=== PATIENT | female | born 1955 | race Caucasian/White ===

== ENCOUNTER 2019-03-21 19:56 | Emergency (ER) | payer MEDICARE ==
[~2019-03-21] VITALS: Ht 171.4 cm; Wt 100.0 kg
[~2019-03-21 19:56] MED LIST: ADDERALL 30 MG30 MG PO; ASPIRIN325 MG; ASPIRIN325 MG PO; CELEXA20 MG PO; CELEXA40 MG PO; DILAUDID8 MG PO; ELIQUIS2.5 MG PO; HYDROCODON-ACE1 EAC2 PO; IBUPROFEN800 MG PO; MOTRIN800 MG PO; PROMETRIUM200 MG PO; SYNTHROID200 MC1 PO; VICTOZA0.6 MG/0.1 SQ; XANAX1 MG PO; ZIAC 5-6.25 MG1 TAB PO
[2019-03-21 20:03] VITALS: Ht 171.4 cm; Wt 100.0 kg
[2019-03-21] MEDS ORDERED: LOVASTATIN10 MG PO (20:07)
[2019-03-21] MEDS ORDERED: GLUCOTROL 5 MG T5 MG PO (20:09)
[2019-03-21 21:28] LABS: BASOPHILS 0.2 % (0-2); EOSINOPHILS 1.9 % (0-7); HEMATOCRIT 38.8 % (36.0-48.0); HEMOGLOBIN 12.3 g/dL (12-16); IMMATURE GRANULOCYTES 0.7 % (0-5); LYMPHOCYTES 35.7 % (15-50); MCHC 31.7 g/dL (31.0-37.0); MCV 91.5 fL (80.0-100.0); MEAN PLATELET VOLUME 9.3 fL (7.4-10.4); MONOCYTES 5.7 % (2-11); NEUTROPHILS 55.8 % (40-80); RBC 4.24 10x6/uL (4.00-5.40); RDW 12.6 % (11.5-14.5); WBC 9.8 10x3/uL (4.8-10.8)
[2019-03-21 21:38] LABS: CALC OSMOLALITY 283 mosm/kg (275-300); CALCIUM 9.2 mg/dL (8.5-10.1); CARBON DIOXIDE 26.1 mmol/L (21.0-32.0); CHLORIDE - SERUM 104 mmol/L (98-107); CREATININE - SERUM 0.9 mg/dL (0.6-1.3); GLUCOSE 146 mg/dL (74-106); KETONE - SERUM NEGATIVE (NEGATIVE); POTASSIUM - SERUM 4.3 mmol/L (3.5-5.1); SODIUM 139 mmol/L (136-145); UREA NITROGEN 21 mg/dL (7-18); eGFR NON AFRICAN AMERICAN 67 mL/min (90-120)
[2019-03-21 21:48] LABS: PLATELET COUNT 244 10x3/uL (130-400)
[2019-03-21 21:52] LABS: ALBUMIN 3.5 g/dL (3.4-5.0); ALKALINE PHOSPHATASE 92 U/L (46-116); ALT (SGPT) 27 U/L (10-68); BILIRUBIN - TOTAL 0.31 mg/dL (0.2-1.3); MAGNESIUM - SERUM 1.9 mg/dL (1.8-2.4); PROTEIN - SERUM 6.7 g/dL (6.4-8.2)
--- NOTE | 2019-03-21 22:02 | NUR ---
DR MUSA NOTIFIED AND REVIEWED PT'S BEHAVIOR AND ASSESSMENT RESULTS. PT IS A LOW RISK. RESOURCES GIVEN AND REVIEWED WITH PATIENT. SHE VERBALIZES UNDERSTANDING.
[2019-03-21 22:40] LABS: APPEARANCE CLEAR (CLEAR); BILIRUBIN NEGATIVE (NEGATIVE); COLOR YELLOW (YELLOW); GLUCOSE NEGATIVE (NEGATIVE); KETONE NEGATIVE (NEGATIVE); NITRITE NEGATIVE (NEGATIVE); PROTEIN NEGATIVE (NEGATIVE); SPECIFIC GRAVITY 1.015 (1.005-1.020); UROBILINOGEN NORMAL (NORMAL)
[2019-03-21 23:47] VITALS: BP 127/90
== END 2019-03-21 23:47 | disposition home or self-care (01) ==
LOC: D.ER 19:56
PROVIDERS: Family Medicine
DX: E86.0 Dehydration (principal); R42 Dizziness and giddiness; R51 Headache; E11.9 Type 2 diabetes mellitus without complications; Z79.84 Long term (current) use of oral hypoglycemic drugs; E03.9 Hypothyroidism, unspecified

== ENCOUNTER 2019-03-23 04:43 | Observation (INO) | payer MEDICARE, OTHER ==
[~2019-03-23] VITALS: Ht 171.4 cm; Wt 100.0 kg
--- NOTE | ~2019-03-23 | CN ---
PATIENT NAME:YAMILE GANNON MEDICAL RECORD: [id number] : 59 LOCATION:[facility] D.2107 ADMIT DATE: 03/23/19 ACCOUNT: [id number] CONSULTING PHYSICIAN: ARSENIO GREENBERG MD REFERRING PHYSICIAN: CATHERINE LEWIS MD DATE OF CONSULTATION: 03/23/2019 CARDIOLOGY CONSULTATION DIAGNOSES: 1. Bradycardia. 2. Dizziness. 3. Shortness of breath. 4. Hypertension. 5. Hyperlipidemia. 6. Smoking. 7. Chronic obstructive pulmonary disease. 8. Valvular heart disease. 9. Noninsulin-dependent diabetes. HISTORY OF PRESENT ILLNESS: Mrs. Gannon presents with dizziness and a numb feeling that she woke up with. She was quite bradycardic with heart rates in the 40s or under. She is on Ziac 10 mg for blood pressure. She has been bradycardic to the 40s. While in here, she denies any chest pain or chest discomfort with this. Her EKG is normal. Troponins are normal. She has not had a workup for ischemic heart disease in the past. PHYSICAL EXAMINATION: CONSTITUTIONAL/GENERAL APPEARANCE: Well nourished, well developed, appears stated age. EYES: Lids and conjunctivae noninjected. No discharge. No pallor. ENT: Lips within normal limit. No cyanosis. No pallor. NECK: Carotid arteries, bilateral normal upstroke. No bruits. No thrills. No jugular venous pressure or distention. CERVICAL LYMPH NODES: Nontender. Nonenlarged. THYROID: Not enlarged. No nodules. CARDIOVASCULAR: Precordial exam, nondisplaced. No heaves or pericardial thrills. Rate and rhythm, regular. Heart sounds, normal S1, normal S2. No S3, no gallop, no rub. Systolic murmur, not heard. Diastolic murmur, not heard. RESPIRATORY: Respiratory effort, unlabored. Normal curvature. No thoracic deformity. No chest wall tenderness. Percussion, resonant. Auscultation, clear. No wheezes, no rales, no rhonchi. ABDOMEN: Soft, nondistended, nontender. No abdominal pain, no vomiting and normal appetite. MUSCULOSKELETAL: No joint tenderness, normal gait, normal tone. SKIN: Warm and dry. OVERALL IMPRESSION: Symptomatic bradycardia secondary to the Ziac. At this time, we would discontinue the Ziac, start her on lisinopril 20 mg a day for blood pressure. She has a history of mitral regurgitation that has not been evaluated for a number of years. We will do an echocardiogram today prior to discharge and then she is okay for discharge, we will see her back next week, review the echo and her current blood pressure on the lisinopril and set her for risk stratification with stress testing as an outpatient. CONSULT REPORT [id number] YAMILE GANNON TRANSINT:[id number] Voice Confirmation ID: [id number] DOCUMENT ID: [id number] ARSENIO GREENBERG MD CC: [id number] DICTATION DATE: 03/23/19 1126 SENIOR CONTRACT SPECIALIST: 03/23/19 1222 ADM IN [facility] [address] [place] [address]
--- NOTE | ~2019-03-23 | EC ---
PATIENT:YAMILE GANNON DATE OF SERVICE: 03/23/19 SEX: F MEDICAL RECORD: [id number] DATE OF : 59 LOCATION:D.M2 D.210 AGE OF PATIENT: 63 ADMISSION DATE: 03/23/19 REFERRING PHYSICIAN: INTERPRETING PHYSICIAN: ARSENIO HAWKINS MD ECHOCARDIOGRAM REPORT ECHO CHARGES 4 ECHO COMPLETE Date: 03/23/19 CLINICAL DIAGNOSIS: MITRAL REGURG ECHOCARDIOGRAPHIC MEASUREMENTS (adult normal given) AC root (d.<3.7cm) 3.2 cm LV Septum d (<1.2 cm> 1.4 cm Valve Excursion 1.6 cm LV Septum (systole) 1.7 cm Left Atria (s.<4.0cm> 3.8 cm LVPW d(<1.2cm) 1.4 cm RV (d.<2.3cm) 3.7 cm LVPW (sytole) 1.7 cm LV diastole(<5.6CM) 4.8 cm MV E-F(>70mm/sec) cm LV systole 3.2 cm LVOT Diameter 1.8 cm MV exc.(>10mm) 1.7 cm Est.ejection fraction (50-75%) % DOPPLER: LVIT cm/sec A 94.0 cm/sec E 85.0 cm/sec LA cm/sec RVSP 21 mmHg LVOT 136 cm/sec AOP1/2T m/s Asc. Ao 180 cm/sec RVOT 107 cm/sec RA cm/sec PA 143 cm/sec AV Gradient Peak 12.98mmHg AV Mean 7.37 mmHg AV Area 2.2 cm MV Gradient Peak 6.02 mmHg MV Mean 1.93 mmHg MV Area cm COMMENTS: Real Estate Lawyer: Lindsay AMEZCUA Audio Video Mechanic: 1 Dr. Hawkins TAPE# PACS Pericardial Effusion N DATE OF SERVICE: 03/23/2019 FINDINGS: 1. Left ventricular chamber size is within normal limits. Left ventricular systolic function is normal. Overall ejection fraction estimated at 60%. 2. Left atrium, right atrium, and right ventricle chamber sizes are within normal limits. 3. Valvular structures have normal structure and motion. 4. Doppler interrogation only reveals trace tricuspid regurgitation, no other valvular insufficiency or stenosis. ECHOCARDIOGRAM REPORT [id number] YAMILE GANNON 5. No evidence of pericardial effusion or left ventricular thrombus. TRANSINT:[id number] Voice Confirmation ID: [id number] DOCUMENT ID: [id number] ARSENIO HAWKINS MD CC: [id number] DICTATION DATE: 03/24/19 0959 RELATIONSHIP BANKER: 03/24/19 1418 DIS IN 03/24/19 [place] [id number] [place] [id number]
[~2019-03-23 04:43] MED LIST changes: +GLUCOTROL 5 MG T5 MG PO; +LOVASTATIN10 MG PO
--- NOTE | 2019-03-23 05:19 | NUR ---
PT AMBULATED TO RESTROOM WITH A STEADY GAIT.
[2019-03-23 06:05] LABS: BASOPHILS 0.2 % (0-2); EOSINOPHILS 2.7 % (0-7); HEMATOCRIT 39.7 % (36.0-48.0); HEMOGLOBIN 12.9 g/dL (12-16); IMMATURE GRANULOCYTES 0.7 % (0-5); LYMPHOCYTES 39.6 % (15-50); MCH 29.3 pg (26.0-34.0); MCHC 32.5 g/dL (31.0-37.0); MEAN PLATELET VOLUME 9.2 fL (7.4-10.4); MONOCYTES 7.5 % (2-11); NEUTROPHILS 49.3 % (40-80); PLATELET COUNT 247 10x3/uL (130-400); RBC 4.41 10x6/uL (4.00-5.40); RDW 12.4 % (11.5-14.5); WBC 8.1 10x3/uL (4.8-10.8)
[2019-03-23 06:12] LABS: CALC OSMOLALITY 282 mosm/kg (275-300); CALCIUM 8.6 mg/dL (8.5-10.1); CARBON DIOXIDE 26.1 mmol/L (21.0-32.0); CHLORIDE - SERUM 104 mmol/L (98-107); CREATININE - SERUM 0.9 mg/dL (0.6-1.3); GLUCOSE 171 mg/dL (74-106); SODIUM 140 mmol/L (136-145); UREA NITROGEN 13 mg/dL (7-18); eGFR NON AFRICAN AMERICAN 67 mL/min (90-120)
[2019-03-23 06:27] LABS: ALBUMIN 3.6 g/dL (3.4-5.0); ALKALINE PHOSPHATASE 91 U/L (46-116); ALT (SGPT) 27 U/L (10-68); BILIRUBIN - TOTAL 0.62 mg/dL (0.2-1.3); LIPASE 113 U/L (73-393); MAGNESIUM - SERUM 1.9 mg/dL (1.8-2.4); PRO BNP 128 pg/mL (0-125); PROTEIN - SERUM 6.9 g/dL (6.4-8.2); THYROID STIMULATING HORMONE 1.06 uIU/mL (0.36-3.74); TROPONIN-I < 0.017 ng/mL (0.000-0.060)
[2019-03-23] MEDS ORDERED: ALBUTEROL SULF8.5 GM INH (06:47)
--- NOTE | 2019-03-23 07:00 | NUR ---
RECEIVED REPORT. ASSUMED CARE OF PATIENT. PATIENT RESTING IN BED WITH EYES OPEN. PATIENT HAS NO COMPLAINTS. CALL LIGHT WITHIN REACH. NO DISTRESS.
--- NOTE | 2019-03-23 07:44 | NUR ---
SPEAKING WITH PATIENT ABOUT HER CURRENT SYMPTOMS WORSENING, QUESTIONED PATIENT ABOUT ANY RECENT CHANGES IN MEDICATIONS. PATIENT STATES THAT SHE WAS RECENTLY (ONE MONTH AGO) PLACED ON ANORO ELLIPTA (LAMA) FOR COPD AND EVERYTIME SHE USES THE MEDICATION, SHE GETS LIGHTHEADED AND SHE STATES SHE REPORTED THIS TO HER PHYSICIAN BUT THE PHYSICIAN WAS INSISTENT THAT SHE CONTINUE TO USE THIS MEDICAITON. THE PATIENT STATES SHE NEVER HAD PROBLEMS WITH HER BP BEING ELEVATED FOR HER HEART RATE DROPPING TO THE 40'S. PER PHARMACOLOGY REFERENCES AVAILABLE, THIS DRUG IS ASSOCIATED WITH SEVERE CARDIOVASCULAR EFFECTS. URINE SENT TO LAB AT THIS TIME. PATIENT IS RESTING IN BED.
[2019-03-23 07:53] LABS: APPEARANCE CLEAR (CLEAR); BILIRUBIN NEGATIVE (NEGATIVE); COLOR STRAW (YELLOW); GLUCOSE NEGATIVE (NEGATIVE); KETONE NEGATIVE (NEGATIVE); NITRITE NEGATIVE (NEGATIVE); PROTEIN NEGATIVE (NEGATIVE); SPECIFIC GRAVITY 1.005 (1.005-1.020); UROBILINOGEN NORMAL (NORMAL)
[2019-03-23 08:19] VITALS: BP 140/79
--- NOTE | 2019-03-23 11:41 | NUR ---
LISINOPRIL INITIATED AT THIS TIME. PATIENT AWAITING HER ECHO SO SHE CAN DISCHARGE TO HOME.
[2019-03-23 11:48] VITALS: BP 122/63
--- NOTE | 2019-03-23 12:58 | NUR ---
ORTHOSTATIC BP: LYING - 122/63, PULSE 49 SITTING - 122/71, PULSE 79 STANDING - 117/74, PULSE 87
[2019-03-23 14:00] VITALS: BP 140/79; Ht 171.4 cm; Wt 100.0 kg
--- NOTE | 2019-03-23 15:59 | NUR ---
C/O HEADACHE. TYLENOL 650 MG PO GIVEN.
[2019-03-23 16:44] VITALS: BP 97/46
--- NOTE | 2019-03-23 17:39 | NUR ---
RESTING IN BED, STATES HEADACHE IS BETTER. NO DISTRESS. CALL LIGHT WITHIN REACH.
[2019-03-23] MEDS ORDERED: LISINOPRIL10 MG PO (18:06)
--- NOTE | 2019-03-23 18:50 | NUR ---
PATIENT TOLD THAT SHE HAD NOW BEEN DISCHARGED AND SHE STATES THAT HER MOM IS 88 YEARS OLD AND DOES NOT DRIVE AT NIGHT. PATIENTS MOM IS HER NEXT OF KIN ON THE FACE SHEET. PATIENT STATES SHE WAS TOLD SHE WASN'T DISCHARGING 3 HOURS AGO AND NOW THEY ARE KICKING HER OUT WITH NO EXPLANATION. SPOKE TO INSURANCE OPERATIONS REP PATIENT DOES NOT HAVE A RIDE HOME AT THIS TIME AND INSTRUCTED TO CALL ARETHA SOTO. MESSAGE SENT TO BRITTANY CARIAS AT THIS TIME TO EXPLAIN THE SITUATION AND THAT PATIENT HAS NO WAY HOME TONIGHT.
--- NOTE | 2019-03-23 19:04 | NUR ---
SPOKE WITH ARETHA SOTO AND NOTIFIED HER THAT PATIENT DOES NOT HAVE A WAY HOME TONIGHT BUT SHE DID 3 HOURS AGO WHEN SHE WAS TOLD SHE WAS NOT GOING. BRITTANY SAID THAT WOULD BE FINE, THE DISCHARGE IS GOOD FOR 24 HOURS AND SHE CAN LEAVE SOON SOMEONE CAN COME AND GET HER.
--- NOTE | 2019-03-23 19:30 | NUR ---
REPORT RECEIVED. ASSUMED CARE OF PT, RESTING IN BED RR EVEN AND UNLABORED. NO S/SX OF DISTRESS NOTED AT THIS TIME. NO VOICED C/O OR CONCRNS NOTED. DISCUSSED D/C PLANNING FOR EARLY AM WHEN PT'S MOTHER CAN COME AND PICK HER UP. CALL LIGHT IN REACH. WILL CTM.
[2019-03-23 20:00] VITALS: BP 118/64
[2019-03-24 04:00] VITALS: BP 137/71
--- NOTE | 2019-03-24 07:13 | NUR ---
PT RESTING, EYES CLOSED. RR EVEN AND UNLABORED. LEFT FOREARM IV NOTED. BED IN LOWEST POSIITON. CALL LIGHT WITHIN REACH. WILL CONTINUE TO MONITOR.
[2019-03-24 08:41] VITALS: BP 146/75
--- NOTE | 2019-03-24 09:10 | NUR ---
D/C INSTRUCTIONS REVIEWED WITH PT. VERBALIZED UNDERSTANDING AND NO FURTHER QUESTIONS AT THIS TIME. MONITOR REMOVED AND RETURNED TO CHIEF OPERATOR HYDROFORMER. PIV REMOVED WITH CATHETER TIP INTACT. PT LEFT VIA WHEELCHAIR WITH ALL BELONGINGS.
--- NOTE | 2019-03-25 08:09 | MORECARE ---
CASE MANAGEMENT DISCHARGE SUMMARY PATIENT: YAMILE GANNON UNIT: [id number] ADM DATE: 03/23/19 AGE: 63 : 59 SEX: F ROOM/BED: D.2107 AUTHOR: LUDY DAMON PHYSICIAN: REFERRING PHYSICIAN: CATHERINE LEWIS MD DATE OF SERVICE: 03/25/19 Discharge Plan Patient Name: YAMILE GANNON Facility: [facility]:[place] : 1955 Planned Disposition: Home Anticipated Discharge Date: 03/24/19 Discharge Date: 03/24/2019 Expected LOS: 1 Initial Reviewer: [email or web address] Initial Review Date: 03/25/2019 Generated: 03/25/19 9:08 am Patient Name: YAMILE GANNON Page 13446 at 0809 All edits/amendments must be made on the electronic document DICTATION DATE: 03/25/19807 TABLE OPERATOR: ALL 03/25/19 08 RPT#: [id number] DC DATE:03/24/19 STATUS: DIS IN [facility] [address] [facility] [place] [address] END OF REPORT
== END 2019-03-24 09:38 | disposition home or self-care (01) ==
LOC: D.ER 04:43 → D.M2 05:56 → OBSVTIME 05:56 → D.M2 03-24 09:38
PROVIDERS: Family Medicine; ADMIT Internal Medicine Nephrology; ATTEND Internal Medicine Nephrology
DX: R07.9 Chest pain, unspecified (principal); R00.1 Bradycardia, unspecified; I10 Essential (primary) hypertension; J44.9 Chronic obstructive pulmonary disease, unspecified; E11.9 Type 2 diabetes mellitus without complications; C90.00 Multiple myeloma not having achieved remission; K58.9 Irritable bowel syndrome, unspecified; R42 Dizziness and giddiness; R53.83 Other fatigue; R06.02 Shortness of breath; E78.5 Hyperlipidemia, unspecified